=== PATIENT | female | born 1990 ===

== ENCOUNTER 2020-09-11 17:58 | Emergency (ER) | payer SELFPAY ==
[~2020-09-11] VITALS: Ht 165.1 cm; Wt 73.7 kg
[2020-09-11 18:02] VITALS: BP 132/90
[2020-09-11] MEDS ORDERED: IBUPROFEN 800 MG TABLET PO ONE (18:30)
--- NOTE | 2020-09-11 18:57 | NUR ---
PT NOT IN LOBBY FOR DC INSTRUCTIONS AND RX WILL KEEP AT CHARGE DESK FOR POSSIBLE RETURN
== END 2020-09-11 18:59 | disposition left against medical advice (07) ==
LOC: ED 18:05
DX: K04.7 Periapical abscess without sinus (principal); F17.210 Nicotine dependence, cigarettes, uncomplicated
CPT/HCPCS: 99283; 99406